=== PATIENT | male | born 1985 | race Caucasian/White ===

== ENCOUNTER 2024-08-25 21:17 | Emergency (ER) | payer OTHER ==
[~2024-08-25] VITALS: Ht 177.8 cm; Wt 70.3 kg
[~2024-08-25 21:17] MED LIST: ALBU90OI INH; FLUSAL1005; PIRBIS; PIRBIS IH; PRED20 PO
[2024-08-25] MEDS ORDERED: Ipratropium/Albuterol SulF 2.5-0.5MG/3 ML Amp INH ONE ×2 (21:35→22:15)
[2024-08-25] MEDS ORDERED: MethylPREDNISolone Sod Succ 125 MG Vial IV ONE (21:35)
[2024-08-25 21:46] LABS: BASOPHILS ABSOLUTE AUTO 0.05 K/mm3 (0.00-0.23); BASOPHILS PERCENT AUTO 1 % (0-2); EOSINOPHILS PERCENT AUTO 4 % (0-6); Hematocrit 42.8 % (37.0-53.0); Hemoglobin 14.5 g/dL (13.5-17.5); IMMATURE GRAN ABSOLUTE AUTO 0.01 K/mm3 (0.00-0.10); IMMATURE GRAN PERCENT AUTO 0 % (0-1); LYMPHOCYTES ABSOLUTE AUTO 3.61 K/mm3 (0.84-5.20); LYMPHOCYTES PERCENT AUTO 40 % (21-46); MONOCYTES ABSOLUTE AUTO 0.54 K/mm3 (0.16-1.47); MONOCYTES PERCENT AUTO 6 % (4-13); Mean Corpuscular HGB 31.9 pg (26.0-34.0); Mean Corpuscular HGB Conc 33.9 g/dL (31.5-36.5); Mean Corpuscular Volume 94 fL (80-100); Mean Platelet Volume 10.2 fL (9.1-12.4); NEUTROPHILS PERCENT AUTO 49 % (41-73); Platelet Count 262 K/mm3 (150-400); RDW Coefficient Variation 12.9 % (11.7-14.2); RDW Standard Deviation 44.6 fL (35.1-46.3); Red Blood Cell Count 4.55 M/mm3 (4.30-5.90); White Blood Cell Count 9.01 K/mm3 (4.00-11.30)
[2024-08-25 22:09] LABS: Albumin, Blood 3.9 g/dL (3.4-5.0); Albumin/Globulin Ratio 1.2 (0.8-1.8); Bilirubin, Total 0.2 mg/dL (0.1-1.0); Bun/Creatinine Ratio 12.2 (12.0-20.0); Calcium, Blood 8.9 mg/dL (8.5-10.1); Creatinine, Blood 0.9 mg/dL (0.60-1.20); Globulin, Blood 3.3 g/dL (2.2-4.0); Potassium, Blood 3.1 mmol/L (3.5-5.5); Total Protein, Blood 7.2 g/dL (6.4-8.2)
[2024-08-25] MEDS ORDERED: Prednisone20 MG PO (22:14)
[2024-08-25] MEDS ORDERED: ALBU90OI INH (22:14)
== END 2024-08-25 22:45 | disposition home or self-care (01) ==
LOC: ER 21:17
PROVIDERS: Physician Assistant
DX: J45.901 Unspecified asthma with (acute) exacerbation (principal); Z79.52 Long term (current) use of systemic steroids; Z79.899 Other long term (current) drug therapy
CPT/HCPCS: 80053; 85025; 94640; 94664; 96374; 99284-25; J2919

== ENCOUNTER 2024-09-02 22:32 | Emergency (ER) | payer OTHER ==
[~2024-09-02] VITALS: Ht 185.4 cm; Wt 95.2 kg
[~2024-09-02 22:32] MED LIST changes: +Prednisone20 MG PO
== END 2024-09-03 03:00 | disposition home or self-care (01) ==
LOC: ER 22:32
DX: J45.901 Unspecified asthma with (acute) exacerbation (principal); Z79.52 Long term (current) use of systemic steroids; Z79.899 Other long term (current) drug therapy
CPT/HCPCS: 71046; 99284-25